=== PATIENT | female | born 1970 | race Caucasian/White ===

== ENCOUNTER 2023-09-17 11:34 | Day surgery (SDC) | payer BC ==
[2023-09-17] MEDS: Polymyxin B/Trimethoprim 10 ML Bottle EYERT SCH (11:44)
[2023-09-17] MEDS: Brimonidine 0.2% Ophth Soln 5 ML Bottle EYERT SCH (11:48)
[2023-09-17] MEDS: Phenylephrine 2.5% Ophth Soln 2 ML Bot EYERT SCH (11:52)
[2023-09-17] MEDS: Lidocaine 1% PF 2 ML SDV INJECT SCH (11:55)
[2023-09-17] MEDS: Cefuroxime 10 MG/ML SYRINGE EYERT SCH (11:55)
[2023-09-17] MEDS: Pilocarpine 4% Ophth Soln 15 ML Bot EYERT SCH (11:55)
[2023-09-17] MEDS: Tetracaine HCl/PF 0.5% 4 ML Bottle EYEBOTH SCH (11:55)
[2023-09-17] MEDS: Tropicamide 1% Ophth Soln 3 ML Bottle EYERT SCH (11:56)
[2023-09-17 13:49] VITALS: BP 109/76; PULSE 58
== END 2023-09-17 13:43 | disposition home or self-care (01) ==
LOC: JD.SDS 11:34
PROVIDERS: ATTEND Ophthalmology
DX: H25.813 Combined forms of age-related cataract, bilateral (principal); H16.103 Unspecified superficial keratitis, bilateral; H16.223 Keratoconjunctivitis sicca, not specified as Sjogren's, bilateral; H02.831 Dermatochalasis of right upper eyelid; H02.834 Dermatochalasis of left upper eyelid; F41.9 Anxiety disorder, unspecified; Z91.09 Other allergy status, other than to drugs and biological substances; Z88.5 Allergy status to narcotic agent
CPT/HCPCS: 66984; A9270; J0697; J3490; V2632

== ENCOUNTER 2023-10-22 11:04 | Day surgery (SDC) | payer BC ==
[2023-10-22] MEDS: Polymyxin B/Trimethoprim 10 ML Bottle EYELF SCH (11:25)
[2023-10-22] MEDS: Brimonidine 0.2% Ophth Soln 5 ML Bottle EYELF SCH (11:30)
[2023-10-22] MEDS: Phenylephrine 2.5% Ophth Soln 2 ML Bot EYELF SCH (11:34)
[2023-10-22] MEDS: Tropicamide 1% Ophth Soln 3 ML Bottle EYELF SCH (11:36)
[2023-10-22] MEDS: Tetracaine HCl/PF 0.5% 4 ML Bottle EYEBOTH SCH (12:12)
[2023-10-22] MEDS: Lidocaine 1% PF 2 ML SDV INJECT SCH (12:34)
[2023-10-22] MEDS: Cefuroxime 10 MG/ML SYRINGE EYELF SCH (12:44)
[2023-10-22] MEDS: Pilocarpine 4% Ophth Soln 15 ML Bot EYELF SCH (12:45)
[2023-10-22 13:07] VITALS: BP 103/68; PULSE 78
== END 2023-10-22 13:00 | disposition home or self-care (01) ==
LOC: JD.SDS 11:04
PROVIDERS: ATTEND Ophthalmology
DX: H25.812 Combined forms of age-related cataract, left eye (principal); F41.9 Anxiety disorder, unspecified; Z79.899 Other long term (current) drug therapy
CPT/HCPCS: 66984; A9270; J0697; J3490

== ENCOUNTER 2024-07-26 09:12 | Emergency (ER) | payer BC ==
[2024-07-26 09:38] LABS: BASOPHILS PERCENT AUTO 0.5 % (0.0-1.0); EOSINOPHILS ABSOLUTE AUTO 0.1 K/mm3 (0.0-0.4); EOSINOPHILS PERCENT AUTO 1.3 % (0.0-6.0); HEMATOCRIT 44.5 % (37.0-47.0); HEMOGLOBIN 14.7 gm/dl (12.0-16.0); IMMATURE GRAN ABSOLUTE AUTO 0.01 K/mm3 (0.00-0.05); IMMATURE GRAN PERCENT AUTO 0.2 % (0.0-0.4); LYMPHOCYTES ABSOLUTE AUTO 2.6 K/mm3 (1.0-4.8); LYMPHOCYTES PERCENT AUTO 42.1 % (24.0-44.0); MEAN CORPUSCULAR HEMOGLOBIN 30.6 pg (28.0-32.0); MEAN CORPUSCULAR VOLUME 92.7 fl (83.0-99.0); MONOCYTES ABSOLUTE AUTO 0.6 K/mm3 (0.0-0.8); MONOCYTES PERCENT AUTO 8.9 % (0.0-8.0); NEUTROPHILS ABSOLUTE AUTO 2.9 K/mm3 (1.8-7.7); PLATELET COUNT,PLT 229 K/mm3 (150-400); WHITE BLOOD CELL COUNT,WBC 6.15 K/mm3 (3.9-11.3)
[2024-07-26] MEDS: Sodium Chloride 0.9% 1,000 ML IV ONE (09:58)
[2024-07-26 10:03] LABS: A/G RATIO 1.1 (1-2); ALANINE AMINOTRANSFERASE,ALT 24 U/L (14-59); ALBUMIN 4.1 g/dl (3.4-5.0); ALKALINE PHOSPHATASE 76 U/L (46-116); ANION GAP 12.7 (5-15); ASPARTATE AMNIOTRANSFERASE,AST 15 U/L (15-37); BILIRUBIN TOTAL 0.5 mg/dL (0.2-1.0); BLOOD UREA NITROGEN,BUN 14 mg/dL (7-18); CALCIUM 9.5 mg/dL (8.5-10.1); CARBON DIOXIDE,CO2 26 mEq/L (21-32); CHLORIDE,CL 106 mEq/L (98-107); CREATININE 0.7 mg/dL (0.55-1.02); ESTIMATED GFR 103 mL/min (>60); GLUCOSE RANDOM 94 mg/dL (70-99); POTASSIUM,K 3.7 mEq/L (3.5-5.1); PROTEIN TOTAL,TP 7.7 g/dl (6.4-8.2); SODIUM,NA 141 mEq/L (136-145); TROPONIN I HIGH SENSITIVITY 6 pg/mL (<=51)
[2024-07-26 11:50] VITALS: BP 129/68; PULSE 68
== END 2024-07-26 11:30 | disposition home or self-care (01) ==
LOC: JD.ED 09:12
DX: R07.89 Other chest pain (principal); Z88.5 Allergy status to narcotic agent; Z91.048 Other nonmedicinal substance allergy status; Z79.899 Other long term (current) drug therapy
CPT/HCPCS: 36415; 71045; 71045-26; 80053; 83735; 84484; 85025; 93005; 93010; 96360; 99283; 99285-25; J7030